=== PATIENT | male | born 1995 | race Caucasian/White ===

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

== ENCOUNTER → 2019-11-20 | Outpatient (REF) | payer OTHER | LOC: M LAB REF 16:15 | PROVIDERS: ATTEND Physician Assistant | DX: R30.0 Dysuria (principal); Z20.2 Contact with and (suspected) exposure to infections with a predominantly sexual mode of transmission ==